=== PATIENT | female | born 1995 | race Caucasian/White ===

== ENCOUNTER 2018-02-25 16:42 | Day surgery (SDC) | payer BC ==
[2018-02-25] MEDS ORDERED: LIDOCAINE 1% 2 ML INJ ID PRN (17:05)
[2018-02-25] MEDS ORDERED: LR 1,000 ML IV ONE (17:05)
[2018-02-25] MEDS ORDERED: oxyCODONE IR 5 MG TAB PO ONE (18:45)
[2018-02-25] MEDS ORDERED: SODIUM BICARBONATE 10 MEQ/10 ML SYR IVP ONE (18:45)
[2018-02-25] MEDS ORDERED: CLINDAMYCIN 600 MG/DEXTROSE 50 ML IV ONE (18:59)
[2018-02-25] MEDS: fentaNYL 100 MCG/2 ML INJ IVP PRN ×4 (18:59→22:30)
[2018-02-25] MEDS ORDERED: BACITRACIN 50,000 UNITS/10 ML SYR IRR ONE (20:48)
--- NOTE | 2018-02-25 20:58 | PDANEPAE ---
ANE History of Present Illness Left Finger I&D ANE Past Medical History - Cardiovascular History Hx Hypertension: No Hx Arrhythmias: No Hx Chest Pain: No Hx Coronary Artery / Peripheral Vascular Disease: No Hx CHF / Valvular Disease: No Hx Palpitations: No Cardiovascular History Comment: heart murmur? - Pulmonary History Hx COPD: No Hx Asthma/Reactive Airway Disease: No Hx Recent Upper Respiratory Infection: No Hx Oxygen in Use at Home: No Hx Sleep Apnea: No Sleep Apnea Screening Result - Last Documented: Negative - Neurologic History Hx Cerebrovascular Accident: No Hx Seizures: No Hx Dementia: No - Endocrine History Hx Diabetes: No - Renal History Hx Renal Disorders: No Renal History Comment: history of kidney infection from UTI - Liver History Hx Hepatic Disorders: No - Neurological & Psychiatric Hx Hx Neurological and Psychiatric Disorders: Yes Neurological / Psychiatric History Comment: Depression/anxiety - Cancer History Hx Cancer: No - Congenital Disorder History Hx Congenital Disorders: No - GI History Hx Gastrointestinal Disorders: No - Surgical History Prior Surgeries: R pinky finger- at age 1 ANE Review of Systems Review of Systems: - Exercise capacity METS (RN): 5 METS ANE Patient History - Allergies Allergies/Adverse Reactions: azithromycin Allergy (Verified 02/25/18 17:28) Rash Penicillins Allergy (Verified 02/25/18 17:28) Rash - Home Medications Home Medications: Ocella 3 mg-0.03 mg Tablet 02/25/18 [Last Taken 02/24/18] - NPO status NPO Since - Liquids (Date): 02/25/18 NPO Since - Liquids (Time): 03:30 NPO Since - Solids (Date): 02/24/18 NPO Since - Solids (Time): 22:30 - Smoking Hx Smoking Status: Never smoked - Family Anes Hx Family Hx Anesthesia Complications: none known ANE Labs/Vital Signs - Vital Signs Blood Pressure: 122/94 Heart Rate: 92 Respiratory Rate: 16 O2 Sat (%): 96 Height: 182.88 cm Weight: 64.864 kg ANE Physical Exam - Airway Neck exam: FROM Mallampati Score: Class 2 Mouth exam: normal dental/mouth exam - Pulmonary Pulmonary: clear to auscultation - Cardiovascular Cardiovascular: regular rate and rhythym - ASA Status ASA Status: I ANE Anesthesia Plan Anesthesia Plan: GA with mask, MAC
--- NOTE | 2018-02-25 20:59 | PDHPUP ---
History & Physical Update H&P update statement: This history and physical update is based on an assessment of the patient which was completed after admission or registration (within 24 hours), but prior to the surgery/procedure. H&P update: H&P reviewed & patient examined, no change in patient's condition since H&P completed
[2018-02-25] MEDS ORDERED: AMPICILLIN/SULBACTAM 3 GM in NS 100 ML IV ONE (21:00)
[2018-02-25] MEDS ORDERED: fentaNYL 100 MCG/2 ML INJ IVP PRN (21:02)
[2018-02-25] MEDS ORDERED: oxyCODONE IR 5 MG TAB PO PRN (21:02)
[2018-02-25] MEDS ORDERED: NALOXONE HCL 0.4 MG/ML INJ IVP PRN (21:02)
[2018-02-25] MEDS ORDERED: ONDANSETRON 4 MG/2 ML VIAL IVP PRN (21:02)
[2018-02-25] MEDS ORDERED: DEXAMETHASONE 4 MG/ML VIAL IVP PRN (21:02)
[2018-02-25] MEDS ORDERED: MIDAZOLAM 2 MG/2 ML VIAL IVP ONE (21:02)
[2018-02-25] MEDS ORDERED: HYDROmorphONE/DILAUDID 2 MG/ML INJ IVP PRN (21:02)
[2018-02-25] MEDS ORDERED: ALBUTEROL 3 ML DEYVIAL IH PRN (21:02)
[2018-02-25] MEDS ORDERED: BUPIVACAINE/EPI 0.5% 30 ML SDV ONE (21:19)
[2018-02-25] MEDS ORDERED: PROPOFOL 200 MG/20 ML VIAL ONE ×2 (21:35→21:41)
[2018-02-25] MEDS ORDERED: fentaNYL 100 MCG/2 ML INJ ONE ×2 (21:36→22:17)
[2018-02-25] MEDS ORDERED: DEXAMETHASONE 4 MG/ML VIAL ONE (22:01)
[2018-02-25] MEDS ORDERED: ONDANSETRON 4 MG/2 ML VIAL ONE (22:01)
--- NOTE | 2018-02-25 22:11 | POSTANESTH ---
Post Anesthetic Evaluation Cardiovascular Status: Normal, Stable Respiratory Status: Normal, Stable Level of Consciousness/Mental Status: Can Participate in Eval, Mildly Sleepy, Arousable Pain Control: Adequate, Prn Tx Ordered Nausea/Vomiting Control: Adequate, Prn Tx Ordered Complications Possibly Related to Anesthesia: None Noted
[2018-02-25 23:24] VITALS: BP 92/57
--- NOTE | 2018-02-27 21:23 | GOP ---
DATE OF OPERATION: 02/25/2018 SURGEON: Missael Dash MD ANESTHESIA: Local, MAC. PREOPERATIVE DIAGNOSIS: Left index finger PIP joint infection due to dog bite. POSTOPERATIVE DIAGNOSIS: Same. PROCEDURE PERFORMED: Irrigation and debridement of left index finger proximal interphalangeal joint infection due to dog bite. FINDINGS: ESTIMATED BLOOD LOSS: 5 cc. DESCRIPTION OF PROCEDURE: The patient was seen in the preoperative holding area. She was given the opportunity to ask any questions. All of her questions were answered. Consent was signed. Surgical site was marked. She was transferred to the operative suite. Care was taken to pad all bony promin ences on the gurney. Time-out was called, including surgical and nursing teams, the surgical site an d procedure performed, 2 g of Unasyn was given. Local and MAC anesthesia given by the anesthesia tea m for sedation. I then placed local to the digit. Then used a finger from a glove as a tourniquet over and over the finger. I marked out in incision decision across the PIP joint and the traumatic wound distally and proximall y. Carefully raised thick skin flaps. I visualized the extensor mechanism over the PIP joint. There was an obvious rent through the extensor mechanism between the central slip and lateral bands, measu ring the same size as the skin puncture. There was a clearly visible PIP joint. There was some syno vium that was debrided with rongeur and a curette. Holding the incision open, I irrigated copiously with sterile saline. At that point, tourniquet was let down. Bleeding was controlled. The wound wa s closed loosely with three 3-0 nylons. Sterile dressing was then placed, wrapped with Coban loosely . A splint was applied. The patient tolerated the procedure well, and was taken back to the PACU in stable condition. INDICATIONS FOR PROCEDURE: The patient, a 22-year-old woman who was bitten by her own dog the day pr ior to presentation, on February 25, during the day. She began experiencing steadily worse heather pain in that digit to the point where it caused her extreme pain to even try to move. There was also increased swelling of that digit at the PIP joint. She was seen in urgent care, where I examin ed her and saw her as well. She had a 3 mm puncture over the dorsal surface of the PIP joint. She r ested her finger in a flexed position. She had tenderness to palpation in the PIP joint and swelling over the joint. She did not have any tenderness to the tendon sheath or any fusiform swelling. I d iscussed with her that an animal puncture wound due to animal bite over that joint is very concerning for violation of joint and septic arthritis, which I believe she is developing. It is early; however , I do recommend irrigation and debridement to prevent complications to the joint. Discussed with he r risks and benefits, which include pain, bleeding, infection, stiffness, weakness, scarring, need fo r further surgery. She understood these risks, and she wished to proceed. POSTOPERATIVE CONDITION: Stable. POSTOPERATIVE PLAN: I will follow cultures. She will see me in a week. She is to begin soaks tomor row with peroxide and saline, and will the finger closely. /[id number]/MODL
== END 2018-02-25 23:10 | disposition home or self-care (01) ==
LOC: FSGY 16:42
PROVIDERS: ATTEND Orthopaedic Surgery Hand Surgery
PROC: 0RCX0ZZ Extirpation of Matter from Left Finger Phalangeal Joint, Open Approach (ICD-10-PCS; principal; 2018-02-25 16:45)
DX: L08.9 Local infection of the skin and subcutaneous tissue, unspecified (principal); S61.231D Puncture wound without foreign body of left index finger without damage to nail, subsequent encounter; W54.0XXD Bitten by dog, subsequent encounter
CPT/HCPCS: J0295; J1100; J2250; J2405; J2704; J3010

== ENCOUNTER → 2018-02-25 | Outpatient (CLI) | payer BC | LOC: BMCIMAGING 09:54 | PROVIDERS: ATTEND Emergency Medicine | DX: S61.231D Puncture wound without foreign body of left index finger without damage to nail, subsequent encounter (principal) ==